=== PATIENT | female | born 1965 | race Caucasian/White ===

== ENCOUNTER 2019-04-28 07:56 | Day surgery (SDC) | payer BC ==
[2019-04-28] VITALS (8 sets, daily range): BP systolic 118–138; BP diastolic 63–67; PULSE 64–76; RESP 16–28; Ht 160 cm; Wt 57.6 kg
[~2019-04-28] VITALS: Ht 160 cm; Wt 57.6 kg
[2019-04-28] MEDS ORDERED: CEFAZOLIN 2 GM/50 ML (PMX) 50 ML IVPB SCH (10:00)
[2019-04-28] MEDS ORDERED: MIDAZOLAM 1 MG/ML 2 ML INJ ONE ×2 (10:46→12:22)
[2019-04-28] MEDS ORDERED: LIDOCAINE 2% (SDV) 5 ML INJ ONE (10:46)
[2019-04-28] MEDS ORDERED: PROPOFOL 20 ML ONE ×2 (10:46→12:20)
[2019-04-28] MEDS ORDERED: FENTAnyl 50 MCG/ML VIAL ONE ×2 (10:48→12:22)
[2019-04-28] MEDS ORDERED: EPHEDrine 25 MG/5 ML SYG ONE (10:59)
[2019-04-28] MEDS ORDERED: BUPIVACAINE 0.25%/EPI (SDV) 10 ML INJ ONE (12:19)
[2019-04-28] MEDS ORDERED: NEOSTIGMINE 3 MG/3 ML SYRINGE ONE ×2 (12:20→13:17)
[2019-04-28] MEDS ORDERED: GLYCOPYRROLATE 0.4 MG INJ ONE ×2 (12:20→13:17)
[2019-04-28] MEDS ORDERED: CEFAZOLIN 1 GM INJ ONE (12:20)
[2019-04-28] MEDS ORDERED: ROCURONIUM 50 MG INJ ONE (12:20)
[2019-04-28] MEDS ORDERED: DEXAMETHASONE 4 MG/ML 5 ML INJ ONE (12:22)
[2019-04-28] MEDS ORDERED: ONDANSETRON 4 MG INJ ONE (12:22)
[2019-04-28] MEDS ORDERED: TRIMETHOBENZAMIDE 100 MG/ML VIAL IM PRN (12:30)
[2019-04-28] MEDS ORDERED: MEPERIDINE 25 MG INJ IV PRN (12:30)
[2019-04-28] MEDS ORDERED: OXYCODONE/ACETAMINOPHEN (5/325) TAB PO PRN ×2 (12:30)
[2019-04-28] MEDS ORDERED: hydrALAzine 20 MG INJ IV PRN (12:30)
[2019-04-28] MEDS ORDERED: LABETALOL HCL 20MG INJ IV PRN (12:30)
[2019-04-28] MEDS ORDERED: MIDAZOLAM 1 MG/ML 2 ML INJ IV PRN (12:30)
[2019-04-28] MEDS ORDERED: ONDANSETRON 4 MG INJ IV PRN ×2 (12:30→14:00)
[2019-04-28] MEDS ORDERED: DIPHENHYDRAMINE 50 MG INJ IV PRN (12:30)
[2019-04-28] MEDS ORDERED: IPRATROPIUM (NEB) 0.5 MG/2.5 ML AMP HHN PRN (12:30)
[2019-04-28] MEDS ORDERED: HYDROmorphONE 1 MG/5 ML IV SYRINGE IV PRN ×3 (12:30)
[2019-04-28] MEDS ORDERED: EPHEDrine 25 MG/5 ML SYG IV PRN (12:30)
[2019-04-28] MEDS ORDERED: ALBUTEROL 0.083% (NEB) 2.5 MG/3 ML AMP HHN PRN (12:30)
[2019-04-28] MEDS ORDERED: FENTAnyl 50 MCG/ML VIAL IV PRN ×3 (12:30)
[2019-04-28] MEDS ORDERED: KETOROLAC 30 MG INJ IV PRN (14:00)
[2019-04-28] MEDS ORDERED: SOD CHLORIDE 0.9% 1,000 ML IV SCH (14:00)
[2019-04-28] MEDS ORDERED: IBUPROFEN 600 MG TAB PO PRN (14:00)
== END 2019-04-28 15:51 | disposition home or self-care (01) ==
LOC: SDS 07:56
PROVIDERS: ATTEND Surgery
DX: N60.92 Unspecified benign mammary dysplasia of left breast (principal); N60.12 Diffuse cystic mastopathy of left breast; N60.22 Fibroadenosis of left breast
CPT/HCPCS: 19101; 88307; J0690; J1100; J2250; J2405; J2710; J3010; Z7512; Z7610